=== PATIENT | female | born 1960 | race Caucasian/White ===

== ENCOUNTER 2017-01-17 12:43 | Emergency (ER) | payer SELFPAY ==
[2017-01-17 12:52] VITALS: BMI 24.7
[2017-01-17 12:55] VITALS: BP 135/86; PULSE 99; RESP 18; TEMP 97.6; O2SAT 100
--- NOTE | 2017-01-17 13:05 | C.PDOC ---
Time Seen by Provider: 01/17/17 13:01 Chief Complaint (Nursing): ENT Problem Past Medical History Vital Signs: Last Vital Signs Temp 97.6 F 01/17/17 12:52 Pulse 99 H 01/17/17 12:52 Resp 18 01/17/17 12:52 BP 135/86 01/17/17 12:52 Pulse Ox 100 01/17/17 12:52 - Medical History PMH: Anemia, Anxiety, Bronchitis Denies: Diabetes, Hepatitis, HIV, HTN, Seizures, Sexually Transmitted Disease Family History: States: Unknown Family Hx - Social History Hx Tobacco Use: Yes Hx Alcohol Use: No Hx Substance Use: No - Immunization History Hx Tetanus Toxoid Vaccination: No Hx Influenza Vaccination: No Hx Pneumococcal Vaccination: No ED Course And Treatment O2 Sat by Pulse Oximetry: 100 Disposition Counseled Patient/Family Regarding: Diagnosis, Need For Followup, Rx Given - Disposition Referrals: [facility] [Outside] Disposition: HOME/ ROUTINE Disposition Time: 13:02 Condition: STABLE Prescriptions: Amoxicillin 875 mg PO BID #20 tablet Naproxen [Naprosyn] 1 tab PO BID PRN #25 tab PRN Reason: Pain Instructions: Cold Symptoms (ED), Cerumen Impaction (ED), Otitis Media (ED) - Clinical Impression Clinical Impression: URI (upper respiratory infection), Otitis media, Trauma of ear canal
--- NOTE | 2017-01-17 13:06 | C.PDOC ---
History Of Present Illness 56 year old female presents to the ED complaining of a runny nose and congestion for the past 2-3 days. She states that 4 days ago she felt a clogged sensation in the left ear, and used a q-tip to clean it, resulting in pain to the ear. Since then she reports congestion, clogged feeling, pain, and discomfort in the left ear, and feels as if her hearing has decreased. PMD: Non [facility] provider Time Seen by Provider: 01/17/17 13:01 Chief Complaint (Nursing): ENT Problem History Per: Patient History/Exam Limitations: None Onset/Duration Of Symptoms: Days (x4) Current Symptoms Are (Timing): Still Present Past Medical History Reviewed: Historical Data, Nursing Documentation, Vital Signs Vital Signs: Last Vital Signs Temp 97.6 F 01/17/17 12:52 Pulse 99 H 01/17/17 12:52 Resp 18 01/17/17 12:52 BP 135/86 01/17/17 12:52 Pulse Ox 100 01/17/17 13:12 - Medical History PMH: Anemia, Anxiety, Bronchitis Denies: Diabetes, Hepatitis, HIV, HTN, Seizures, Sexually Transmitted Disease Surgical History: (x4) Other Surgeries: Partial hysterectomy Family History: States: Unknown Family Hx - Social History Hx Tobacco Use: Yes Hx Alcohol Use: No Hx Substance Use: No - Immunization History Hx Tetanus Toxoid Vaccination: No Hx Influenza Vaccination: No Hx Pneumococcal Vaccination: No Review Of Systems Except As Marked, All Systems Reviewed And Found Negative. ENT: Positive for: Ear Pain (with clogged sensation), Nose Discharge, Nose Congestion Physical Exam - Physical Exam Appears: Non-toxic, No Acute Distress Skin: Normal Color, Warm, Dry Head: Atraumatic, Normacephalic Eye(s): bilateral: Normal Inspection, PERRL, EOMI Ear(s): Left: Other (Left TM is opaque. Some superficial trauma to the canal is noted, with slight scab), Right: TM Obscured By Wax Nose: Normal, Other (Nasal congestion) Oral Mucosa: Moist Throat: Normal Neck: Normal, Normal ROM Cardiovascular: Rhythm Regular Respiratory: Normal Breath Sounds, No Wheezing Neurological/Psych: Oriented x3, Normal Speech ED Course And Treatment O2 Sat by Pulse Oximetry: 100 (RA) Pulse Ox Interpretation: Normal Medical Decision Making Medical Decision Making: Time: 13:02 Clinical Impression: URI, Otitis media, Trauma of ear canal Plan: Patient is medically stable. Will d/c with prescriptions for Amoxicillin and Naprosyn. Patient is to follow up with PMD. Return if symptoms persist or worsen. Disposition Counseled Patient/Family Regarding: Studies Performed, Diagnosis, Need For Followup, Rx Given - Disposition Referrals: [facility] [Outside] Disposition: HOME/ ROUTINE Disposition Time: 13:02 Condition: STABLE Prescriptions: Amoxicillin 875 mg PO BID #20 tablet Naproxen [Naprosyn] 1 tab PO BID PRN #25 tab PRN Reason: Pain Instructions: Cerumen Impaction (ED), Otitis Media (ED), Cold Symptoms (ED) Forms: [employer] ([employer]) - Clinical Impression Clinical Impression: URI (upper respiratory infection), Otitis media, Trauma of ear canal - Scribe Statement The provider has reviewed the documentation as recorded by the Scribmatt Qureshi All medical record entries made by the Scribe were at my direction and personally dictated by me. I have reviewed the chart and agree that the record accurately reflects my personal performance of the history, physical exam, medical decision making, and the department course for this patient. I have also personally directed, reviewed, and agree with the discharge instructions and disposition.
== END 2017-01-17 13:13 | disposition home or self-care (01) ==
LOC: C.ER 12:43
DX: J06.9 Acute upper respiratory infection, unspecified (principal); H66.90 Otitis media, unspecified, unspecified ear; S09.91XA Unspecified injury of ear, initial encounter; X58.XXXA Exposure to other specified factors, initial encounter; Y93.E8 Activity, other personal hygiene; Z87.891 Personal history of nicotine dependence

== ENCOUNTER → 2017-05-08 12:32 | Emergency (ER) | payer SELFPAY ==
[2017-05-08 12:46] VITALS: BMI 25.7
[2017-05-08 12:50] VITALS: BP 166/96; PULSE 118; RESP 20; TEMP 98.1; O2SAT 99
== END | disposition left against medical advice (07) ==
LOC: C.ER 12:32
DX: Z02.89 Encounter for other administrative examinations (principal); R05 Cough